=== PATIENT | female | born 1965 ===

== ENCOUNTER 2024-03-28 06:20 | Day surgery (SDC) | payer BC, SELFPAY | END 2024-03-28 14:52 | disposition home or self-care (01) | LOC: GI 06:20 | PROVIDERS: ATTENDING PHYSICIAN Internal Medicine Gastroenterology | DX: Z12.11 Encounter for screening for malignant neoplasm of colon (principal); R19.7 Diarrhea, unspecified; K64.4 Residual hemorrhoidal skin tags; K62.1 Rectal polyp | CPT/HCPCS: 45385; 45380; 88305 ==